=== PATIENT | female | born 1975 | race Caucasian/White ===

== ENCOUNTER 2020-07-03 16:02 | Emergency (ER) | payer OTHER ==
[2020-07-03 16:06] VITALS: RESP 16; TEMP 97.7
[2020-07-03 16:56] LABS: Basophils # (A) 0.1 k/uL (0-0.2); Basophils % (A) 1 %; Eosinophils # (A) 0.1 k/uL (0-0.7); Eosinophils % (A) 2 %; HCT 39.7 % (34.0-46.0); HGB 12.9 gm/dL (11.4-16.0); Lymphocytes # (A) 1.4 k/uL (1.0-4.8); Lymphocytes % (A) 17 %; MCH 29.3 pg (25.0-35.0); MCHC 32.5 g/dL (31.0-37.0); MCV 90.2 fL (80.0-100.0); Mean Platelet Volume 7.5; Monocytes # (A) 0.3 k/uL (0-1.0); Monocytes % (A) 4 %; Neutrophils # (A) 5.9 k/uL (1.3-7.7); Neutrophils % (A) 75 %; Platelet Count 362 k/uL (150-450); RDW 13.2 % (11.5-15.5); WBC 7.9 k/uL (3.8-10.6)
--- NOTE | 2020-07-03 16:56 | ED ---
Chest Pain HPI - General Chief Complaint: Chest Pain Stated Complaint: chest pain Time Seen by Provider: 07/03/20 16:11 Source: patient Mode of arrival: wheelchair Limitations: no limitations - History of Present Illness Initial Comments: Patient is a 45-year-old female presenting to the emergency Department with complaints of intermittent chest pain has been going on for 2 days. She states the pain is mostly in the middle of her chest, upper area with some radiation across the chest. She does admit to some intermittent shortness of breath as well. She denies a cough, no nausea or vomiting. She states she has not been sick recently. 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 She does have some concern for COVID. He denies any fever, chills. She denies taking any medications. She denies having history of heart disease, asthma, COPD, she is a nonsmoker. She denies history of blood clots. She has no further complaints at this time. Upon arrival to the ER, her vital signs are stable. - Related Data Allergies Allergy/AdvReac Type Severity Reaction Status Date / Time No Known Allergies Allergy Verified 07/03/20 16:06 Review of Systems ROS Statement: Those systems with pertinent positive or pertinent negative responses have been documented in the HPI. ROS Other: All systems not noted in ROS Statement are negative. EKG Findings - EKG Comments: EKG Findings:: Normal sinus rhythm, normal ECG, no signs of acute ischemia. Ventricular rate 78, MN interval 152, QT 398. Past Medical History Past Medical History: No Reported History History of Any Multi-Drug Resistant Organisms: None Reported Past Surgical History: No Surgical Hx Reported Smoking Status: Never smoker Past Alcohol Use History: None Reported Past Drug Use History: None Reported General Exam - General Exam Comments Initial Comments: GENERAL: Patient is well-developed and well-nourished. Patient is nontoxic and in no acute distress. HEAD: Atraumatic, normocephalic. EYES: Pupils equal round and reactive to light, extraocular movements intact, sclera anicteric, conjunctiva are normal. Eyelids were unremarkable. ENT: TMs normal, nares patent, oropharynx clear without exudates. Moist mucous membranes. NECK: Normal range of motion, supple without lymphadenopathy or JVD. LUNGS: Unlabored respirations. Breath sounds clear to auscultation bilaterally and equal. No wheezes rales or rhonchi. HEART: Regular rate and rhythm without murmurs, rubs or gallops. ABDOMEN: Soft, nontender, normoactive bowel sounds. No guarding, no rebound. No masses appreciated. : Deferred MUSCULOSKELETAL: Normal extremities with adequate strength and normal range of motion, no pitting or edema. No clubbing or cyanosis. NEUROLOGICAL: Patient is alert and oriented x 3. Motor and sensory are also intact. Cranial nerves II through XII grossly intact. Symmetrical smile. Normal speech, normal gait. PSYCH: Normal mood, normal affect. SKIN: Warm, Dry, normal turgor, no rashes or lesions noted. Limitations: no limitations Course Vital Signs 07/03/20 07/03/20 16:03 18:46 Temperature 97.7 F Pulse Rate 78 70 Respiratory 16 16 Rate Blood Pressure 129/64 116/63 O2 Sat by Pulse 98 100 Oximetry Chest Pain [facility] Patient is a 45-year-old female presenting with intermittent chest pressure and pain as well as intermittent shortness of breath for the last 2 days. She takes no medications, no history of heart disease. She was worried about Covid. Her EKG shows no acute process, her vital signs are stable. Her exam is unremarkable. Lab work shows no acute process, troponin is negative, d-dimer is normal. Chest x-ray also shows no acute process. Patient has been asymptomatic since being in the ER. I discussed these findings with the patient. I did recommend admission for serial troponins and cardiac consult, however patient is refusing. She states she will follow up with her PCP as an outpatient. Patient will sign out AMA. Strict return parameters were discussed with the patient and she verbalized understanding. Case discussed with Dr. Krishna. Disposition Clinical Impression: Chest pain Disposition: Left Against Medical Advice Condition: Stable Instructions (If sedation given, give patient instructions): Chest Pain (ED) Additional Instructions: Please return to the Emergency Department if symptoms worsen or any other concerns. Follow-up with PCP as discussed. Is patient prescribed a controlled substance at d/c from ED?: No Referrals: None,Stated [Primary Care Provider] - 1-2 days
[2020-07-03 17:06] LABS: ALT 19 U/L (4-34); AST 29 U/L (14-36); African American GFR (CKD) >90 (>60 ml/min/1.73 sqM); Albumin 4.4 g/dL (3.5-5.0); Alkaline Phosphatase 71 U/L (38-126); Anion Gap 8 mmol/L; Blood Urea Nitrogen 10 mg/dL (7-17); Calcium 9.6 mg/dL (8.4-10.2); Carbon Dioxide 24 mmol/L (22-30); Chloride 106 mmol/L (98-107); Glucose 101 mg/dL (74-99); Magnesium 1.9 mg/dL (1.6-2.3); Non-African American GFR(CKD) >90 (>60 ml/min/1.73 sqM); Potassium 4.7 mmol/L (3.5-5.1); Sodium 138 mmol/L (137-145); Total Bilirubin 0.5 mg/dL (0.2-1.3); Total Protein 7.9 g/dL (6.3-8.2)
[2020-07-03 17:12] LABS: D-Dimer 0.34 mg/L FEU (<0.60); Partial Thromboplastin Time 24.1 sec (22.0-30.0); Prothrombin Time 10.2 sec (9.0-12.0)
--- NOTE | 2020-07-03 18:10 | XR ---
EXAMINATION TYPE: XR chest 2V DATE OF EXAM: 07/03/2020 COMPARISON: NONE HISTORY: Chest pain. TECHNIQUE: Frontal and lateral views of the chest are obtained. FINDINGS: There is no focal air space opacity, pleural effusion, or pneumothorax seen. The cardiac silhouette size is within normal limits. The osseous structures are intact. IMPRESSION: No acute cardiopulmonary process.
[2020-07-03 18:47] VITALS: BP 116/63; PULSE 70
== END 2020-07-03 18:58 | disposition left against medical advice (07) ==
LOC: EC 16:02
DX: R07.9 Chest pain, unspecified (principal); R06.02 Shortness of breath; Z20.828 Contact with and (suspected) exposure to other viral communicable diseases
CPT/HCPCS: 36415; 71046; 80053; 83735; 84484; 85025; 85379; 85610; 85730; 87635; 93005; 99285